=== PATIENT | female | born 1935 | race Caucasian/White ===

== ENCOUNTER → 2016-08-05 | Outpatient (CLI) | payer MEDICARE ==
[2016-08-05 11:28] LABS: ALT (GPT) 19 U/L (10-53); ANION GAP 5 MEQ/L (5-15); AST (GOT) 10 U/L (15-37); BICARBONATE 30.8 MEQ/L (21.0-32.0); BLOOD UREA NITROGEN 18 MG/DL (7-18); CHLORIDE 102 MEQ/L (98-107); GLOMERULAR FILTRATION RATE 60 ML/MIN (>89); GLUCOSE,FASTING 86 MG/DL (74-99); POTASSIUM 4.1 MEQ/L (3.5-5.1); SODIUM (NA) 138 MEQ/L (136-145)
[2016-08-05 11:31] LABS: ALKALINE PHOSPHATASE 60 U/L (45-117); HDL CHOLESTEROL 70.8 MG/DL (40.0-60.0); LDL CHOLESTEROL 95 MG/DL (0-99); TOTAL BILIRUBIN ADULT 0.5 MG/DL (0.2-1.0)
== END ==
LOC: PLAB 08:29
PROVIDERS: ATTEND Family Medicine
DX: I10 Essential (primary) hypertension (principal); E78.5 Hyperlipidemia, unspecified
CPT/HCPCS: 36415; 80053; 80061

== ENCOUNTER → 2017-06-16 | Outpatient (CLI) | payer MEDICARE ==
[2017-06-16 09:21] LABS: AUTOMATED NEUTROPHIL # 3.8 TH/MM3 (1.8-7.7); BASOPHIL # 0.1 TH/MM3 (0-0.2); BASOPHIL % 1.2 % (0.0-2.0); EOSINOPHIL # 0.3 TH/MM3 (0-0.4); HEMATOCRIT 37.7 % (35.0-46.0); HEMO FLAGS DIFF FINAL; LYMPH % 17.9 % (9.0-44.0); MEAN CELL VOLUME 94.2 FL (80.0-100.0); MEAN CORPUSCULAR HEMOGLOBIN 32.5 PG (27.0-34.0); MEAN CORPUSCULAR HGB CONC 34.5 % (32.0-36.0); MONO % 10.6 % (0.0-8.0); NEUT % 65.3 % (16.0-70.0); PLATELET COUNT 269 TH/MM3 (150-450); RED CELL DISTRIBUTION WIDTH 14.6 % (11.6-17.2); WHITE BLOOD COUNT 5.9 TH/MM3 (4.0-11.0)
[2017-06-16 09:38] LABS: ANION GAP 10 MEQ/L (5-15); AST (GOT) 12 U/L (15-37); BICARBONATE 29.5 MEQ/L (21.0-32.0); BLOOD UREA NITROGEN 14 MG/DL (7-18); CHLORIDE 100 MEQ/L (98-107); GLOMERULAR FILTRATION RATE 71 ML/MIN (>89); GLUCOSE,FASTING 89 MG/DL (74-99); POTASSIUM 4.2 MEQ/L (3.5-5.1); SODIUM (NA) 139 MEQ/L (136-145)
[2017-06-16 09:39] LABS: ALT (GPT) 16 U/L (10-53)
[2017-06-16 09:42] LABS: ALKALINE PHOSPHATASE 83 U/L (45-117); TOTAL BILIRUBIN ADULT 0.6 MG/DL (0.2-1.0)
== END ==
LOC: PLAB 07:27
PROVIDERS: ATTEND Family Medicine
DX: I10 Essential (primary) hypertension (principal)
CPT/HCPCS: 36415; 80053; 85025

== ENCOUNTER → 2017-11-05 | Outpatient (CLI) | payer MEDICARE ==
[2017-11-05 09:26] LABS: PROTHROMBIN TIME - PATIENT 10.4 SEC (9.8-11.6)
[2017-11-05 10:13] LABS: AUTOMATED NEUTROPHIL # 5.1 TH/MM3 (1.8-7.7); BASOPHIL # 0.1 TH/MM3 (0-0.2); BASOPHIL % 1.1 % (0.0-2.0); EOSINOPHIL # 0.3 TH/MM3 (0-0.4); EOSINOPHIL % 4.4 % (0.0-4.0); HEMATOCRIT 29.9 % (35.0-46.0); HEMOGLOBIN 9.9 GM/DL (11.6-15.3); LYMPH % 10.1 % (9.0-44.0); LYMPHOCYTE # 0.7 TH/MM3 (1.0-4.8); MEAN CELL VOLUME 82.4 FL (80.0-100.0); MEAN CORPUSCULAR HEMOGLOBIN 27.3 PG (27.0-34.0); MEAN CORPUSCULAR HGB CONC 33.2 % (32.0-36.0); MEAN PLATELET VOLUME 6.3 FL (7.0-11.0); MONO % 13.4 % (0.0-8.0); PLATELET COUNT 523 TH/MM3 (150-450); RED BLOOD COUNT 3.62 MIL/MM3 (4.00-5.30); RED CELL DISTRIBUTION WIDTH 14.8 % (11.6-17.2); WHITE BLOOD COUNT 7.2 TH/MM3 (4.0-11.0)
[2017-11-05 10:22] LABS: ALBUMIN 2.7 GM/DL (3.4-5.0); AST (GOT) 13 U/L (15-37); BICARBONATE 30.3 MEQ/L (21.0-32.0); BLOOD UREA NITROGEN 16 MG/DL (7-18); CHLORIDE 97 MEQ/L (98-107); CREATININE 0.75 MG/DL (0.50-1.00); GLOMERULAR FILTRATION RATE 74 ML/MIN (>89); GLUCOSE,FASTING 97 MG/DL (74-99); SODIUM (NA) 135 MEQ/L (136-145)
[2017-11-05 10:23] LABS: ALT (GPT) 17 U/L (10-53)
[2017-11-05 10:25] LABS: ALKALINE PHOSPHATASE 79 U/L (45-117); TOTAL BILIRUBIN ADULT 0.4 MG/DL (0.2-1.0); TOTAL PROTEIN 6.4 GM/DL (6.4-8.2)
== END ==
LOC: PLAB 07:41
PROVIDERS: ATTEND Family Medicine
DX: R19.09 Other intra-abdominal and pelvic swelling, mass and lump (principal)
CPT/HCPCS: 36415; 80053; 82378; 85025; 85610; 85730

== ENCOUNTER 2018-05-12 05:38 | Inpatient (IN) ==
[2018-05-12] MEDS ORDERED: Metoprolol Tartrate 25 MG Tablet PO ONE (06:09)
[2018-05-12] MEDS ORDERED: Chlorhexidine Gluconate 2% 1 Pack (2 Cloths) TOPICAL ONE (06:09)
[2018-05-12 06:54] LABS: Baso % (Auto) 0.6 % (0.0-2.0); Eos # (Auto) 0.2 th/mm3 (0.0-0.4); Eos % (Auto) 5.6 % (0.0-4.0); Hematocrit 33.5 % (35.0-46.0); Hemoglobin 11.1 gm/dL (11.6-15.3); Lymph # (Auto) 0.8 th/mm3 (1.0-4.8); Lymph % (Auto) 20.2 % (9.0-44.0); Mean Corpuscular HGB Conc 33.3 % (32.0-36.0); Mean Corpuscular Hemoglobin 29.7 pg (27.0-34.0); Mean Corpuscular Volume 89.3 fL (80.0-100.0); Mean Platelet Volume 6.8 fL (7.0-11.0); Mono # (Auto) 0.3 th/mm3 (0.0-0.9); Mono % (Auto) 8.7 % (0.0-8.0); Neut # (Auto) 2.5 th/mm3 (1.8-7.7); Neut % (Auto) 64.9 % (16.0-70.0); Platelet Count 222 th/mm3 (150-450); Red Blood Count 3.75 mil/mm3 (4.00-5.30); Red Cell Distribution Width 15.9 % (11.6-17.2); White Blood Count 3.9 th/mm3 (4.0-11.0)
[2018-05-12] MEDS ORDERED: Sodium Chlor 0.9% Inj 500 ML IV.SIG SCH (07:00)
[2018-05-12] MEDS ORDERED: ceFAZolin 1 GM Premix Inj 1 GM/50 ML FROZ.PIGGY IV.SIG SCH (07:00)
[2018-05-12 07:01] LABS: Prothrombin Time 10.1 sec (9.8-11.6)
[2018-05-12 07:07] LABS: Alanine Aminotransferase 18 U/L (10-53); Albumin 3.7 g/dL (3.4-5.0); Anion Gap 7 meq/L (5-15); Aspartate Aminotransferase 13 U/L (15-37); Blood Urea Nitrogen 21 mg/dL (7-18); Calcium 8.8 mg/dL (8.5-10.1); Carbon Dioxide 28.5 meq/L (21.0-32.0); Chloride 107 meq/L (98-107); Glomerular Filtration Rate 61 mL/min (>89); Glucose,Random 96 mg/dL (74-106); Potassium 4.1 meq/L (3.5-5.1); Sodium 142 meq/L (136-145)
[2018-05-12 07:09] LABS: Alkaline Phosphatase 57 U/L (45-117); Total Protein 7.2 g/dL (6.4-8.2)
[2018-05-12] MEDS ORDERED: Bupivacaine/Epinephrine Inj 0.25% 50 ML Vial ONE (07:18)
[2018-05-12] MEDS ORDERED: Ketamine Inj 50 MG/5 ML Syringe IV.PUSH ONE (07:28)
[2018-05-12] MEDS ORDERED: Sugammadex Inj 200 MG/2 ML Vial IV.PUSH ONE (07:29)
[2018-05-12] MEDS ORDERED: Phenylephrine/NS 1000 MCG/10ML Syringe IV.PUSH ONE (07:38)
[2018-05-12] MEDS ORDERED: Lidocaine PF 1% Inj 5 ML Syringe OTHER ONE (07:38)
--- NOTE | 2018-05-12 08:25 | ECG ---
Date Performed: 05/12/2018 Time Performed: 06:22:38 PTAGE: 82 years EKG: Sinus arrhythmia Possible septal infarct - age undetermined Low QRS voltages in precordial leads Abnormal ECG NO PREVIOUS TRACING DOCTOR: Long Larios Interpretating Date/Time 05/12/2018 08:23:59
[2018-05-12] MEDS ORDERED: fentaNYL Citrate Inj 100 MCG/2 ML Ampul ONE (11:10)
[2018-05-12] MEDS ORDERED: Promethazine 25 MG Supp RECTAL PRN (11:13)
[2018-05-12] MEDS ORDERED: Naloxone Inj 0.4 MG/ML Vial IV.PUSH PRN (11:13)
[2018-05-12] MEDS ORDERED: Post-op Orders (for Pharmacy) OTHER ONE (11:13)
[2018-05-12] MEDS ORDERED: Benzocaine 20% Oral Spray 60 ML Can OROPHARYNG PRN (11:13)
[2018-05-12] MEDS ORDERED: Enoxaparin Inj 40 MG/0.4 ML Syringe SQ ONE (11:13)
[2018-05-12] MEDS ORDERED: Morphine Sulfate Inj 2 MG/ML Vial IV.PUSH PRN (11:13)
[2018-05-12] MEDS ORDERED: *morphine SULFATE 4 MG/ML PERIprocedure ONLY ONE ×3 (11:27→12:24)
[2018-05-12] MEDS: Sod Chloride 0.9% Inj 1,000 ML IV.CONT SCH ×2 (12:00→23:31)
--- NOTE | 2018-05-12 13:45 | MP ---
cc: Danie Keyes MD DATE OF OPERATION: 05/12/2018 PREOPERATIVE DIAGNOSES: 1. Gastrointestinal stromal tumors. 2. Status post neoadjuvant therapy with imatinib. POSTOPERATIVE DIAGNOSES: 1. Gastrointestinal stromal tumors. 2. Status post neoadjuvant therapy with imatinib. PROCEDURE: Robotic partial gastrectomy. ATTENDING SURGEON: Danie Keyes MD. ATTENDING [employer]SEM[employer]ED [employer] REPAIRER: Staff. ANESTHESIA: General and local anesthetic. ESTIMATED BLOOD LOSS: 50 mL. COMPLICATIONS: None. FINDINGS: 1. At least a 5 cm or greater tumor involving the greater curve of the stomach consistent with a GIST as well as the significant portions of necrosis associated with it. 2. No evidence of any metastatic disease or any intra-abdominal pathology. INDICATIONS FOR PROCEDURE: The patient is an 82-year-old female who was, earlier in this year, diagnosed with a large GIST. The patient had significant symptoms and workup and biopsy did show a GIST type malignancy. Due to the patient's age and increased risk for surgery as well as the extensive morbidity of attempted resection and per NCCN guidelines, a neoadjuvant imatinib was given to the patient. She tolerated this well with some nonlife threatening side effects and had a substantial response on imaging. The patient was reconsidered for surgery after several months of treatment and was found to be a candidate for minimally invasive approach for resection of her tumor. Risks, benefits, and alternatives were discussed with the patient and her and they agreed to undergo the procedure. DETAILS OF PROCEDURE: The patient was taken to the operating room and placed in the supine position and placed under general endotracheal anesthesia. The patient's abdomen was prepped and draped in sterile fashion. A timeout was performed. The abdomen was entered by Darshan-type technique above the umbilicus with a 15 blade scalpel. I used the scalpel to directly open the fascia at the midline and placed a 10 mm trocar into the abdomen under direct visualization. We then insufflated the abdomen, surveyed the abdomen with a 5 mm 30-degree camera. There was no evidence of any complication from our entry. There was the tumor noted in the left upper quadrant. This appeared resectable and there was no evidence of any metastatic disease. At this point in time, we decided to proceed with the robotic operation. We placed multiple robotic ports. We placed two 5 mm robotic ports in the right upper quadrant under visualization of the laparoscope, 1 to the right of midline and right upper quadrant, 1 in the far right upper quadrant below the costal margin. We placed a 15 mm robotic stapler port in the left upper quadrant mid axillary line under direct visualization of the laparoscope. At this point in time, we docked the da Delano Xi system without difficulty. We used the suction lead burner in arm 3 and the fenestrated bipolar in arm 2, and the vessel sealer in arm 1 to perform our dissection. We took down multiple inflammatory and filmy adhesions from the tumor, from the hilum of the spleen, the diaphragm, and mobilized the splenic flexure using the vessel sealer. This took approximately 1 hour for the full dissection. Once we had dissected out, it was clear that the stomach had previously been compressed and had some adhesions onto itself and these were taken down as well to fully extend the stomach. We placed a 32-K[place] bougie transorally into the stomach to confirm the location and exact anatomy of the GE junction and lesser curvature of the stomach. It was obvious that we had a very wide margin between the tumor, which was on the greater curve up near the fundus of the stomach, and the lesser curve of the stomach. We could perform a large partial gastrectomy and resect most of the fundus and about half of the gastric body to gain negative margins to completely resect this tumor. At this point in time, we were unable to use the robotic stapler due to a technical problem with the stapler. Therefore, we did place a fourth port and this was on the far left upper quadrant of the patient below the costal margin and this was a 10/12 mm port. This was an assistance port and we used an Carl 60 COLIN stapler with green loads to perform the gastric resection. We used approximately 5 loads to perform the gastric resection. The staple line was intact with no bleeding and viable and pink. We removed the GIST and a portion of the stomach with the Endo Catch bag. We suction irrigated out the left upper quadrant until all suctioning was clear. We removed all the ports and de-docked the da Delano Xi system. We then widened one of the 50 mm port in a nonmuscle cutting, muscle spreading type incision in the lateral rectus sheath to extract the tumor and with the Endo Catch bag. We then closed this in 2 layers with 0 Vicryl suture. We also closed the Darshan 10/12 mm port in the periumbilical area with 0 Vicryl suture. We closed the skin with 4-0 Monocryl and Dermabond. The patient was discontinued from anesthesia and taken to the PACU in stable condition. The patient tolerated the procedure well. All counts were correct and no apparent complications. 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 MD CAM Kaur/ts , 12:50 PM , 01:05 PM
[2018-05-12] MEDS: Pantoprazole Inj 40 MG Vial IV.PUSH SCH (14:56)
[2018-05-12] MEDS ORDERED: ceFAZolin Inj 1,000 MG in Sodium Chlor 0.9% Inj 100 ML IV.SIG SCH (15:00)
[2018-05-12] MEDS: ceFAZolin 1 GM Premix Inj 1 GM/50 ML FROZ.PIGGY IV.SIG SCH ×2 (15:32→23:30)
[2018-05-13] MEDS: Sod Chloride 0.9% Inj 1,000 ML IV.CONT SCH ×2 (09:04→17:27)
--- NOTE | 2018-05-13 11:10 | P.PNGS ---
Subjective Interval history: Resting in bed at bedside Physical Exam Vital signs: Vital Signs 05/12/18 11:20 05/12/18 11:35 05/12/18 11:50 Temperature Pulse Rate 80 77 79 Respiratory Rate 16 16 18 Blood Pressure 191/79 H 165/80 H 158/76 H Pulse Oximetry 100 94 L 96 05/12/18 12:05 05/12/18 12:20 05/12/18 13:00 Temperature 97.4 F L Pulse Rate 78 76 76 Respiratory Rate 18 18 18 Blood Pressure 156/77 H 148/70 H 160/77 H Pulse Oximetry 100 97 100 05/12/18 14:00 05/12/18 15:00 05/12/18 15:45 Temperature 97.8 F Pulse Rate 74 74 76 Respiratory Rate 16 16 20 Blood Pressure 170/85 H 147/72 H 136/68 Pulse Oximetry 100 99 100 05/12/18 16:00 05/12/18 17:12 05/12/18 20:00 Temperature 97.2 F L 97.3 F L Pulse Rate 67 84 Respiratory Rate 17 17 Blood Pressure 131/67 155/69 H Pulse Oximetry 95 94 L 100 05/13/18 00:00 05/13/18 02:03 05/13/18 07:00 Temperature 97.2 F L 97.2 F L Pulse Rate 86 85 Respiratory Rate 17 16 17 Blood Pressure 100/58 L 147/71 H Pulse Oximetry 100 98 Intake & Output 05/12/18 05/13/18 05/13/18 18:59 06:59 18:59 Intake Total 2250 / 2250 2080 / 2080 1000 / 1000 Output Total 1450 / 1450 300 / 300 Balance 800 / 800 1780 / 1780 1000 / 1000 Intake: IV 250 / 250 1600 / 1600 1000 / 1000 NS Inj 1,000 ML @ 100 mls/hr IV 1000 / 1000 1000 / 1000 .CONT .Q10H [facility] Rx#:[id number] Ofirmev Inj 1,000 mg In 100 ml 100 / 100 200 / 200 @ 400 mls/hr IV.SIG Q6H [facility] Rx# :[id number] Ancef 1 GM Premix Inj 1 gm In 50 / 50 100 / 100 50 ml @ 200 mls/hr IV.SIG Q8H [facility] Rx#:[id number] Flagyl 500 MG Inj 100 ML @ 200 100 / 100 200 / 200 mls/hr IV.SIG Q8H [facility] Rx#: [id number] Oral 480 / 480 Anesthesia Amount 1999 Output: Urine 600 / 600 300 / 300 Estimated Blood Loss 50 / 50 Urine Amount (Catheter) 800 / 800 200 800 / 800 Other: Date of Last Bowel Movement 05/13/18 Narrative: Alert and awake Abd: soft; incisions c/d/i with skin glue; minimally tender with palpation No edema Trotter in place with clear yellow urine - Urinary Catheter Management 200 Cath placed during this visit: yes, but has since been removed by the nurse Reason for continuing: Not indwelling catheter Removal date: 05/13/18 Removal time: 10:22 Results - Labs 05/12/18 06:35 05/12/18 06:20 Assessment and Plan - Assessment (1) Gastrointestinal stromal tumor (GIST) Code(s): C49.A0 - Gastrointestinal stromal tumor, unspecified site Status: Acute Plan: 82 year old female with GIST; POD1 robotic partial gastrectomy -Advance to full liquids -DC Trotter -IVF -OOB; PT ordered -Pain control -IS - Plan 82 year old female POD1 robotic partial resection gastrectomy -Advance to full liquids -DC Trotter -OOB as tolerated; PT ordered -Continue IVF for now -IS - Attending Attestation The exam, history, and the medical decision-making described in the above note were completed with the assistance of the mid-level provider. I reviewed and agree with the findings presented. I attest that I had a [id number] encounter with the patient on the same day, and personally performed and documented my assessment and findings in the medical record. Patient s/p robotic resection of GIST Acute pain controlled, tolerating clears Exam: postop pain, inc c/d/i Continue OOB, advance diet to fulls d/w patient at bedside plan of care and DC plan
[2018-05-13] MEDS: Pantoprazole Inj 40 MG Vial IV.PUSH SCH (11:42)
[2018-05-14 07:40] VITALS: RESP 17
[2018-05-14] MEDS ORDERED: Polyethylene Glycol 3350 17 GM Packet PO SCH (10:00)
[2018-05-14 10:42] VITALS: O2SAT 98
[2018-05-14 11:32] VITALS: BP 150/72; PULSE 66; TEMP 97.7
[2018-05-14] MEDS: Pantoprazole Inj 40 MG Vial IV.PUSH SCH (14:22)
--- NOTE | 2018-05-14 16:05 | P.PNGS ---
Subjective Patient reports: no new complaints, feels better, flatus Physical Exam Vital signs: Vital Signs 05/13/18 20:00 05/14/18 00:00 05/14/18 07:38 Temperature 98.3 F 98.8 F 97.4 F L Pulse Rate 80 71 74 Respiratory Rate 15 14 17 Blood Pressure 146/65 H 132/74 178/83 H Pulse Oximetry 97 93 L 96 05/14/18 10:40 05/14/18 11:31 Temperature 97.7 F Pulse Rate 65 66 Respiratory Rate 17 Blood Pressure 165/70 H 150/72 H Pulse Oximetry 98 98 Intake & Output 05/13/18 05/14/18 05/14/18 18:59 06:59 18:59 Intake Total 3750 / 3750 240 / 240 Output Total 1050 / 1050 Balance 2700 / 2700 240 / 240 Weight 59.3 kg Intake: IV 3000 / 3000 NS Inj 1,000 ML @ 100 mls/hr IV 2000 / 2000 .CONT .Q10H [facility] Rx#:[id number] LR 1000 mL Inj 1,000 ML @ 30 1000 / 1000 mls/hr IV.SIG .Q24H [facility] Rx#: [id number] Oral 750 / 750 240 / 240 Output: Urine 1050 / 1050 Other: # Voids 3 Date of Last Bowel Movement 05/13/18 05/13/18 # Bowel Movements 1 - Constitutional no acute distress - Routine Abdominal Exam Present: soft, normoactive bowel sounds, tenderness. Absent: distended, rebound , guarding - Urinary Catheter Management 200 Cath placed during this visit: yes, but has since been removed by the nurse Reason for continuing: Not indwelling catheter Removal date: 05/13/18 Removal time: 10:22 Results - Labs 05/12/18 06:35 05/12/18 06:20 Assessment and Plan - Assessment (1) Gastrointestinal stromal tumor (GIST) Code(s): C49.A0 - Gastrointestinal stromal tumor, unspecified site Status: Acute Plan: 82 year old female with GIST; POD1 robotic partial gastrectomy -tolerating fulls - DC home
== END 2018-05-14 17:16 | disposition home or self-care (01) ==
LOC: HSDC 05:38 → EDSTATUS 07:30 → HSDI 11:37 → N07 16:20
PROVIDERS: ADMIT Surgery; ATTEND Surgery